=== PATIENT | female | born 1995 | race American Indian/Alaskan Native ===

== ENCOUNTER 2019-10-26 00:04 | Emergency (ER) | payer SELFPAY ==
[2019-10-26 00:32] LABS: Basophils # (Auto) 0.1 K/mm3 (0.0-0.1); Basophils % (Auto) 0.8 % (0.0-1.8); Eosinophils # (Auto) 0.2 K/mm3 (0.0-0.4); Eosinophils % (Auto) 2.2 % (0.0-4.3); Hematocrit 38.7 % (30.3-42.9); Hemoglobin 12.7 gm/dl (10.1-14.3); Lymphocytes # (Auto) 4.1 K/mm3 (1.2-5.4); Lymphocytes % (Auto) 36.5 % (13.4-35.0); Mean Corpuscular HGB Conc 33 % (30-34); Mean Corpuscular Volume 85 fl (79-97); Monocytes # (Auto) 0.6 K/mm3 (0.0-0.8); Monocytes % (Auto) 5.2 % (0.0-7.3); Platelet Count 405 K/mm3 (140-440); Red Blood Count 4.56 M/mm3 (3.65-5.03); Red Cell Distribution Width 12.9 % (13.2-15.2)
[2019-10-26 00:44] LABS: Alanine Aminotransferase 15 units/L (7-56); Albumin 4.7 g/dL (3.9-5); BUN/Creatinine Ratio 23; Blood Urea Nitrogen 14 mg/dL (7-17); Calcium 9.6 mg/dL (8.4-10.2); Hemolysis Index 13
[2019-10-26 01:22] LABS: Bacteria,Urine 1+ /HPF (Negative); Bilirubin,Urine NEG (Negative); Blood,Urine NEG (Negative); Color,Urine Yellow (Yellow); Mucus,Urine FEW /HPF; Protein,Urine <15 mg/dL mg/dL (Negative); Urobilinogen,Urine < 2.0 mg/dL (<2.0); WBC,Urine < 1.0 /HPF (0.0-6.0)
[2019-10-26] MEDS ORDERED: ONDANSETRON 4 MG/2 ML INJ IV ONE (01:53)
[2019-10-26] MEDS ORDERED: KETOROLAC 30 MG/1 ML INJ IV ONE (01:53)
--- NOTE | 2019-10-26 02:29 | Cat Scan Report ---
CT ABDOMEN AND PELVIS WITH CONTRAST HISTORY: MAIN: RLQ pain 100CC [id number]. COMPARISON: None. TECHNIQUE: CT images of the abdomen and pelvis were obtained following administration of intravenous contrast. All CT scans at this location are performed using CT dose reduction for ALARA by means of automated exposure control. CONTRAST: 100 ml of intravenous contrast administered. FINDINGS: Lungs/bones: Lung bases are clear. There is no acute osseous abnormality. Abdomen/pelvis: A couple punctate hypodensities in the posterior hepatic segment may represent cysts . The liver is enlarged but otherwise unremarkable. The gallbladder, spleen, pancreas, adrenals, kidn eys, and proximal GI tract appear unremarkable. The urinary bladder and uterus appear unremarkable. There are several bilateral ovarian follicles. No significant pelvic free fluid. No acute colonic abnormality. The terminal ileum is normal. The appen rona is also unremarkable. IMPRESSION: 1. No acute abnormality identified. 2. Incidental findings as above including multiple bilateral ovarian follicles, likely functional for a woman of this age. Signer Name: Dilshad Manning MD Signed: 10/26/2019 2:25 AM Workstation Name: [id number]
--- NOTE | 2019-10-26 02:44 | Emergency Department Report ---
ED Abdominal Pain HPI - General Chief Complaint: Abdominal Pain Stated Complaint: ABD PAIN PUI?: No Source: patient Mode of arrival: Ambulatory Limitations: No Limitations - History of Present Illness Initial Comments: Patient is a A0 24-year-old -Algerian female with no past medical history presents to the ED with complaint of acute onset persistent diffuse low abdominal pain for the last 2 weeks, worse in the last 2 days with nausea. Pat ient states that the pain is worse with movement or exertion. Patient states that she has been taking orve-lgi-jeaxhet medications for pain with no relief. Patient denies dysuria, urinary frequency and urgency, vaginal discharge, vaginal bleeding, dizziness, fever, chills, cough, low back pain, diarrhea, vomiting, chest pain or shortness of breath and sore throat. MD Complaint: abdominal pain (Diffuse lower), other (nausea) -: Sudden, week(s) (2) Location: LLQ, RLQ, suprapubic Radiation: none Migration to: no migration Severity scale (0 -10): 6 Quality: cramping, sharp Consistency: constant Improves With: nothing Worsens With: movement Associated Symptoms: denies other symptoms, nausea. denies: vomiting, diarrhea, fever, chills, constipation, dysuria, hematemesis, hematochezia, syncope - Related Data LMP Date: 10/18/19 Previous Rx's Medication Instructions Recorded Last Taken Type Naproxen 500 mg PO Q12H PRN #24 tablet 10/26/19 Unknown Rx Ondansetron [Zofran Odt] 4 mg PO Q6HR PRN #15 tab.rapdis 10/26/19 Unknown Rx Allergies Allergy/AdvReac Type Severity Reaction Status Date / Time No Known Allergies Allergy Verified 10/26/19 00:09 ED Review of Systems ROS: Stated complaint: ABD PAIN Other details as noted in HPI Constitutional: denies: chills, fever Eyes: denies: eye pain, eye discharge, vision change ENT: denies: ear pain, throat pain Respiratory: denies: cough, shortness of breath, wheezing Cardiovascular: denies: chest pain, palpitations Endocrine: no symptoms reported Gastrointestinal: abdominal pain (Diffuse lower abdominal pain), nausea. denies: diarrhea Genitourinary: denies: urgency, dysuria, discharge Musculoskeletal: denies: back pain, joint swelling, arthralgia Skin: denies: rash, lesions Neurological: denies: headache, weakness, paresthesias Psychiatric: denies: anxiety, depression Hematological/Lymphatic: denies: easy bleeding, easy bruising ED Past Medical Hx - Past Medical History Previous Medical History?: No - Surgical History Past Surgical History?: No - Social History Smoking Status: Never Smoker Substance Use Type: None - Medications Home Medications: Home Medications Medication Instructions Recorded Confirmed Last Taken Type Naproxen 500 mg PO Q12H PRN #24 tablet 10/26/19 Unknown Rx Ondansetron [Zofran Odt] 4 mg PO Q6HR PRN #15 tab.rapdis 10/26/19 Unknown Rx ED Physical Exam - General Limitations: No Limitations General appearance: alert, in no apparent distress - Head Head exam: Present: atraumatic, normocephalic, normal inspection - Eye Eye exam: Present: normal appearance, PERRL, EOMI Pupils: Present: normal accommodation - ENT ENT exam: Present: normal exam, normal orophraynx, mucous membranes moist, TM's normal bilaterally, normal external ear exam - Neck Neck exam: Present: normal inspection, full ROM - Respiratory Respiratory exam: Present: normal lung sounds bilaterally. Absent: respiratory distress, wheezes, rales, rhonchi, chest wall tenderness, accessory muscle use, decreased breath sounds - Cardiovascular Cardiovascular Exam: Present: regular rate, normal rhythm, normal heart sounds. Absent: systolic murmur, diastolic murmur, rubs, gallop - GI/Abdominal GI/Abdominal exam: Present: soft, tenderness (Palpable mild tenderness on right lower quadrant area), normal bowel sounds. Absent: guarding, rebound - Extremities Exam Extremities exam: Present: normal inspection, full ROM, normal capillary refill - Back Exam Back exam: Present: normal inspection, full ROM. Absent: tenderness, CVA tenderness (R), muscle spasm, paraspinal tenderness - Neurological Exam Neurological exam: Present: alert, oriented X3, CN II-XII intact, normal gait, reflexes normal - Psychiatric Psychiatric exam: Present: normal affect, normal mood - Skin Skin exam: Present: warm, dry, intact, normal color. Absent: rash ED Course Vital Signs 10/26/19 10/26/19 00:08 02:05 Temperature 98.5 F Pulse Rate 102 H Respiratory 18 16 Rate Blood Pressure 156/98 O2 Sat by Pulse 98 Oximetry ED Medical Decision Making - Lab Data Result diagrams: 10/26/19 00:18 10/26/19 00:18 - Radiology Data Radiology results: report reviewed, image reviewed Findings [facility] [address] [place] [address] Cat Scan Report Signed Patient: YONAS MCNALLY MR#: [id number] : 1995 Acct:[id number] Age/Sex: 24 / F ADM Date: 10/26/19 Loc: ED Attending Dr: Ordering Physician: DAMIÁN QUINTERO Date of Service: 10/26/19 Procedure(s): CT abdomen pelvis w con Accession Number(s): [id number] cc: DAMIÁN QUINTERO CT ABDOMEN AND PELVIS WITH CONTRAST HISTORY: MAIN: RLQ pain 100CC [id number]. COMPARISON: None. TECHNIQUE: CT images of the abdomen and pelvis were obtained following administration of intravenous contrast. All CT scans at this location are performed using CT dose reduction for ALARA by means of automated exposure control. CONTRAST: 100 ml of intravenous contrast administered. FINDINGS: Lungs/bones: Lung bases are clear. There is no acute osseous abnormality. Abdomen/pelvis: A couple punctate hypodensities in the posterior hepatic segment may represent cysts. The liver is enlarged but otherwise unremarkable. The gallbladder, spleen, pancreas, adrenals, kidneys, and proximal GI tract appear unremarkable. The urinary bladder and uterus appear unremarkable. There are several bilateral ovarian follicles. No significant pelvic free fluid. No acute colonic abnormality. The terminal ileum is normal. The appendix is also unremarkable. IMPRESSION: 1. No acute abnormality identified. 2. Incidental findings as above including multiple bilateral ovarian follicles, likely functional for a woman of this age. Signer Name: Dilshad Manning MD Signed: 10/26/2019 2:25 AM Workstation Name: [id number] Transcribed By: VIVIAN Dictated By: Dilshad Manning MD Electronically Authenticated By: Dilshad Manning MD Signed Date/Time: 10/26/19224 DD/ 1 TD/TT: - Medical Decision Making This is a A0 24-year-old -Algerian female with no past medical history presents to the ED with complaint of acute onset persistent diffuse low abdominal pain for the last 2 weeks, worse in the last 2 days with nausea. Patient states that the pain is worse with movement or exertion. Patient states that she has been taking zful-vtl-gsfjsny medications for pain with no relief. In the ED, patient is alert and oriented x3 and is not in any distress. Lab test results were reviewed and showed mild acute leukocytosis of 11,200, mild hypokalemia of 3.4 mmol/L and hyperglycemia of 114 mg/dL. The rest of the lab test results are nonactionable. Based on the physical exam findings of right lower quadrant tenderness, abdomen pelvis CT scan with contrast was performed and it showed no acute appendicitis, and no other acute abnormality except incidental findings of multiple bilateral ovarian follicles, likely functional for a woman of this age. Patient was treated for pain in the ED and on reevaluation, patient's pain is well controlled with medications. Patient was discharged home on pain medications and advised to follow-up with PLACEMENT MANAGER physician or primary care physician in 5 to 7 days for reevaluation or return to the ED immediately if symptoms get worse. - Differential Diagnosis Apendicitis; Ovarian cysts; UTI; Kidney stones; PID; Muscle strain Critical care attestation.: If time is entered above; I have spent that time in minutes in the direct care of this critically ill patient, excluding procedure time. ED Disposition Clinical Impression: Bilateral ovarian cysts Abdominal pain Qualifiers: Abdominal location: lower abdomen, unspecified Qualified Code(s): R10.30 - Lower abdominal pain, unspecified Disposition: DC-01 TO HOME OR SELFCARE Is pt being admited?: No Does the pt Need Aspirin: No Condition: Stable Instructions: Abdominal Pain (ED), Ovarian Cyst (ED) Additional Instructions: All lab test results show no acute process including urinalysis. Abdomen pelvis CT scan with contrast shows bilateral ovarian cysts. Therefore take pain medication as needed with food, drink plenty of fluids and follow-up with your PLACEMENT MANAGER physician or primary care physician in 5 to 7 days for reevaluation or return to the ED immediately if symptoms get worse. Prescriptions: Naproxen 500 mg PO Q12H PRN #24 tablet PRN Reason: Pain , Severe (7-10) Ondansetron [Zofran Odt] 4 mg PO Q6HR PRN #15 tab.rapdis PRN Reason: Nausea Referrals: [facility] [Provider Group] - 3-5 Days Time of Disposition: 02:51 Print Language: [place]
[2019-10-27 12:59] VITALS: BP 138/82
== END 2019-10-26 03:14 | disposition home or self-care (01) ==
LOC: ED 00:04
DX: N83.202 Unspecified ovarian cyst, left side (principal); N83.201 Unspecified ovarian cyst, right side; R10.32 Left lower quadrant pain; Z79.899 Other long term (current) drug therapy
CPT/HCPCS: 36415; 74177; 80053; 81001; 84703; 85025; 96374; 96375; 99284; J1885; J2405; Q9967